=== PATIENT | male | born 1975 | race Caucasian/White ===

== ENCOUNTER 2016-10-10 18:52 | Emergency (ER) | payer OTHER ==
[~2016-10-10] VITALS: Ht 177.8 cm; Wt 102.0 kg
[2016-10-10 18:56] VITALS: BP 139/85; PULSE 99; RESP 16; O2SAT 97
--- NOTE | 2016-10-10 19:23 | ED.REPORT ---
HPI-Extremity Problem Lower Date of Service Oct 10, 2016 ED Provider: Shamir Siu MD The patient is a 41 year old male who presents to the ED c/o of stabbing right knee pain for the past few days. Patient has [place] revealing a hx of narcotic seeking behavior. Pt states that he sustained a femur injury in 2004 and aggravated the injury when moving some boxes to the 4th floor of his apt building a few days ago. He has been taking ibuprofen and Tylenol for pain which has not been effective at reducing his symptoms. Pt has been told he will eventually need a knee replacement. Significant hx includes right femur surgery. Nursing Notes Stated Complaint: SWOLLEN, PAINFUL ROGHT KNEE Chief Complaint: Extremity Trauma Nursing Notes Reviewed: Yes Allergies: Coded Allergies: Penicillins (Verified Allergy, Intermediate, hives, 10/10/16) General Time Seen by MD: 19:00 Chief Complaint Knee injury right Hx Obtained From: Patient Arrived By: Walk-in Onset Occurred: 3 days ago Symptom Duration: Since onset Location: : Knee right Quality: Painful Severity: Current: Moderate Exacerbated by: Range of motion, Movement Similar Sx Previous: Yes Past Medical History Past Medical History healthy Past Surgical History right femur surgery right knee surgery Smoking History Unknown if Ever Smoker Social History Other Social History: Local resident Ambulatory Status Independent Review of Systems Constitutional: Denies: Chills, Fever Musculoskeletal: Reports: Extremity pain (right knee pain), Joint pain (right knee pain) Skin: Denies Diaphoresis Neurologic: Denies: Change LOC, Lightheaded, Weakness Complete sys rev & neg: except as marked. Physical Exam Initial Vital Signs Vital Signs (First) Date Time Temp Pulse Resp B/P Pulse Ox O2 Delivery O2 Flow Rate FiO2 10/10/16 18:56 37.1 99 16 139/85 97 Room Air Initial VS: Reviewed Right Knee: Negative: Deformity present, Ecchymosis present, Erythema present, Joint effusion present well healed surgical scar over right knee Ankle / Foot: Atraumatic, Inspection NL General/Constitutional: Awake, Alert, No acute distress, Cooperative, Not toxic appearing Respiratory / Chest: Atraumatic, Breath sounds NL, Breath sounds = bilat, No respiratory distress Cardiovascular: Heart rate NL, Regular rhythm, Heart sounds NL Skin: Atraumatic, Color NL, Warm, Dry Neurologic: Oriented X3, Speech NL, No motor deficits Head / Eyes: Atraumatic, Normocephalic, PERRL, EOMI ENT: Atraumatic, Airway patent, Mucous membranes moist Abdomen: Atraumatic, Soft, Non-tender Re-Eval/Medical Decision Med Decision/Clinical Course The patient is a 41 year old male who presents to the ED c/o of stabbing right knee pain for the past few days. Patient has [place] revealing a hx of narcotic seeking behavior. Pt states that he sustained a femur injury in 2004 and aggravated the injury when moving some boxes to the 4th floor of his apt building a few days ago. He has been taking ibuprofen and Tylenol for pain which has not been effective at reducing his symptoms. Pt has been told he will eventually need a knee replacement. Here in the emergency department the patient is afebrile w/ stable vital signs and examination as above. RIGHT KNEE X-RAY IMPRESSION: Diffuse osteoarthritic change considered moderate. Patient was given Toradol for pain with moderate improvement in his symptoms. At this time, there is no evidence of fracture, dislocation, septic arthritis, joint effusion or overlying infection. His pain is most likely related to degenerative disease related to his previous injury. At this time, I see no evidence of significant acute injury. He will follow up with his regular doctor and orthopedic surgeon to further discuss any ongoing management. At this time, I feel he is appropriate for discharge. We discussed nonnarcotic modalities for pain management. Prior to discharge follow-up and return precautions were reviewed in detail with the patient who verbalized understanding and agreement with the plan. The patient was discharged in stable condition. Re-Evaluation/Progress : Time of Eval: 19:27 Re-Evaluation/Progress Note: Plan for 30 mg IM torridol. Counseled Regarding: Diagnosis, Lab results, Need for follow-up, When/why to return to ED Discharge & Departure Impression: Primary Impression: Osteoarthritis Osteoarthritis location: knee Osteoarthritis type: post-traumatic Laterality: right Qualified Code: M17.31 - Unilateral post-traumatic osteoarthritis, right knee Additional Impressions: Right knee pain Chronicity: chronic Qualified Code: M25.561 - Pain in right knee History of knee surgery History of femur fracture Opiate dependence Substance use status: with unspecified opioid-induced disorder Qualified Code : F11.29 - Opioid dependence with unspecified opioid-induced disorder Disposition: Home Discharge Condition All VS Reviewed: Yes Condition: Stable Additional Instructions: Use tylenol, ibuprofen and Ice packs. I recommend 600 mg Ibuprofen 3 times a day for 7 days. This will help with pain and antinflammatory effects. With this amount of damage to your knee, you will probably get to the point where you should consider a knee replacement. Follow up with your primary care physician and I have attached a referral to orthopedics. Return to the Emergency Department if you experience any new or worsening symptoms. Thank you for entrusting us with your care today. Referrals: [facility] (PCP) [facility] Scribe Attestation Portion of this note were transcribed by Krupa Clark. I, Dr. Siu, personally performed the history, physical exam, and medical decision-making: I reviewed and confirmed the accuracy for the information in the transcribed note. Signed by: pushpa Catalan, 10/10/16 2300 copies to: [facility] Shamir Siu MD Oct 10, 2016 19:23 Krupa Clark Oct 10, 2016 19:28
--- NOTE | 2016-10-10 20:17 | DRSVH ---
PROCEDURE: X-RAY RIGHT KNEE, THREE VIEWS ([id number]) INDICATIONS: knee pain, prev surg TECHNIQUE: 3 views of the knee were acquired. COMPARISON: None. FINDINGS: Bones: No fractures or dislocations. There is spurring of the intracondylar eminence. There medial and lateral marginal osteophytes of small to moderate size. There are marginal osteophytes around the patellofemoral joint. There is an intramedullary cathy that ends 1.5 cm above the intracondylar notch. Soft tissues: No joint effusion. No suspicious soft tissue calcifications. IMPRESSION: Diffuse osteoarthritic change considered moderate. Dictated by: Ashwin Iglesias M.D. on 10/10/2016 at 20:14 Approved by: Ashwin Iglesias M.D. on 10/10/2016 at 20:15
[2016-10-10 20:34] VITALS: BP 141/87; PULSE 85; RESP 16; O2SAT 99
== END 2016-10-10 20:42 | disposition home or self-care (01) ==
LOC: SED 18:52
DX: M17.31 Unilateral post-traumatic osteoarthritis, right knee (principal); F11.29 Opioid dependence with unspecified opioid-induced disorder; Z87.81 Personal history of (healed) traumatic fracture; Z98.890 Other specified postprocedural states
CPT/HCPCS: 73562; 96372; 99284; J1885

== ENCOUNTER 2016-11-18 20:51 | Emergency (ER) | payer OTHER ==
[~2016-11-18] VITALS: Ht 177.8 cm; Wt 100.0 kg
[2016-11-18 20:57] VITALS: BP 163/81; PULSE 80; RESP 18; O2SAT 99
--- NOTE | 2016-11-18 21:35 | DRSVH ---
PROCEDURE: X-RAY RIGHT HAND, MINIMUM THREE VIEWS ([id number]) INDICATIONS: 41 year-old male with right hand injury yesterday. TECHNIQUE: 3 views of the hand(s) acquired. COMPARISON: None. FINDINGS: Bones: There is mildly displaced oblique fracture involving the fifth metacarpal base. Other bones ap pear intact. No suspicious bony lesions. Soft tissues: No suspicious soft tissue calcifications. IMPRESSION: Mildly displaced oblique fracture of the fifth metacarpal base. Dictated by: Daniel Mcelroy M.D. on 11/18/2016 at 21:32 Approved by: Daniel Mcelroy M.D. on 11/18/2016 at 21:33
--- NOTE | 2016-11-18 21:45 | ED.REPORT ---
HPI-Extremity Problem Upper Date of Service Nov 18, 2016 ED Provider: Doc,Ed MD Nursing Notes Stated Complaint: POSS BROKEN RIGHT HAND Chief Complaint: Extremity Trauma Allergies: Coded Allergies: Penicillins (Verified Allergy, Intermediate, hives, 11/18/16) General Time Seen by MD: 21:44 Past Medical History Past Medical History healthy Past Surgical History right femur surgery right knee surgery Smoking History Unknown if Ever Smoker Social History Other Social History: Local resident Ambulatory Status Independent Physical Exam Initial Vital Signs Vital Signs (First) Date Time Temp Pulse Resp B/P Pulse Ox O2 Delivery O2 Flow Rate FiO2 11/18/16 20:57 36.0 80 18 163/81 99 Room Air Discharge & Departure Referrals: [facility] (PCP) Kanu Garcia MD Nov 18, 2016 21:45
--- NOTE | 2016-11-18 21:45 | ED.REPORT ---
HPI-Extremity Problem Upper Date of Service Nov 18, 2016 ED Provider: Dr. Lozano Pt is a 41 year old male presenting to the ED complaining of right hand pain onset twenty-four hours prior to arrival when he punched a steel door. He denies any other injury, numbness, weakness, wheezing, vomiting, or fever. Denies any hx of drug or alcohol abuse. Nursing Notes Stated Complaint: POSS BROKEN RIGHT HAND Chief Complaint: Extremity Trauma Nursing Notes Reviewed: Yes Allergies: Coded Allergies: Penicillins (Verified Allergy, Intermediate, hives, 11/18/16) Scheduled PRN Ibuprofen (Ibuprofen) 600 Mg Tablet 600 MG PO QID PRN PRN For Pain General Time Seen by MD: 21:44 Chief Complaint Hand injury right Hx Obtained From: Patient Arrived By: Walk-in Onset Occurred: Just prior to arrival Symptom Duration: Since onset Caused by: Fist injury Location: : Hand right Quality: Painful Severity: Current: Moderate Severity: Maximum: Severe Recent Healthcare: No recent doctor visit, No recent hospitalization Similar Sx Previous: No Past Medical History Past Medical History healthy Past Surgical History right femur surgery right knee surgery Smoking History Unknown if Ever Smoker Social History Other Social History: Local resident Ambulatory Status Independent Review of Systems Constitutional: Denies: Fever, Weakness - generalized Musculoskeletal: Reports: Extremity pain Neurologic: Denies: Numbness Complete sys rev & neg: except as marked. Respiratory: Denies: Wheezing Physical Exam Initial Vital Signs Vital Signs (First) Date Time Temp Pulse Resp B/P Pulse Ox O2 Delivery O2 Flow Rate FiO2 11/18/16 20:57 36.0 80 18 163/81 99 Room Air Initial VS: Reviewed General/Constitutional: Well-developed, Well-nourished Head / Eyes: Atraumatic, Normocephalic, PERRL ENT: Mucous membranes moist, Conjunctiva normal, No scleral icterus Neck: Supple, Non-tender, Full range of motion Respiratory: Breath sounds normal, Clear to auscultation, No respiratory distress Cardiovascular: Regular rate & rhythm, Heart sounds normal, Intact distal pulses Abdomen / GI: Soft, Non-tender, No guarding, No rebound, No distention Lower Extremities: Vascular intact, Neuro intact, No swelling, No tenderness Skin: Warm, Dry, No cyanosis Neurologic: Alert, Oriented, Nonfocal Psychiatric: Mood/affect normal, Behavior normal, Normal thought content Wrist / Hand: No erythema, No deformity, Neurologic intact, Vascular intact Right Hand: Positive: Tenderness present... Interpretation & Diagnostics X-Ray Interpretation Xray Interpretation: IMPRESSION: Mildly displaced oblique fracture of the fifth metacarpal base. Dictated by: Daniel Mcelroy M.D. on 11/18/2016 at 21:32 X-Ray Ordered: Hand right Interpretation / Wet Read by: Interpret - Radiologist Re-Eval/Medical Decision Med Decision/Clinical Course 41-year-old presents with a self-induced fracture after punching a steel door. He is fracture the base of his fifth metacarpal with moderate angulation and some comminution. Placed in an ulnar gutter splint. I asked him directly if he had any issues with narcotics in the past and he denied this. ED i.e. report subsequently shows a care plan excluding narcotics except for acute trauma And demonstrable sources of pain. I confronted him with this information and he acknowledged minimizing his difficulties, but he does have an acute bony injury, and was provided with ten Vicodin only without any renewal. Follow-up with Dr. Hatfield in the office. Re-Evaluation/Progress #1: Time of Eval: 21:49 Patient Status: Condition improved Re-Evaluation/Progress Note: Discussed plan for discharge. Pt understands and agrees with plan. Re-Evaluation/Progress #2: Time of Eval: 22:27 Patient Status: Condition improved Re-Evaluation/Progress Note: Discussed the pt's LOGAN report. Counseled Regarding: Diagnosis, Lab results, Need for follow-up, When/why to return to ED Discharge & Departure Impression: Primary Impression: Fracture of metacarpal base of right hand, closed Encounter type: initial encounter Qualified Code: S62.319A - Displaced fracture of base of unspecified metacarpal bone, initial encounter for closed fracture Disposition: Home Discharge Condition All VS Reviewed: Yes Condition: Improved Patient Instructions: Hand Fracture (ED), Splint Care (ED) Additional Instructions: Wear the splint full-time for four weeks. You may remove to wash and then re- apply the splint. Elevate whenever possible above the level of the heart to reduce swelling. Ice frequently over the first twenty-four hours. Call the orthopedic office tomorrow morning for follow-up. Ibuprofen first then Vicodin if needed for pain Follow up with your doctor in the office. Return if any immediate issues. Referrals: Nader Hatfield Attestation Portions of this note were transcribed by Alvina Evans. I, Dr. Lozano personally performed the history, physical exam and medical decision-making; I reviewed and confirmed the accuracy of the information in the transcribed note. Signed by: Keysha Reynolds, 11/18/2016 at 2212. copies to: Nader Hatfield Christopher W MD Nov 18, 2016 21:45 ALVINA EVANS Nov 18, 2016 21:50
[2016-11-18] MEDS ORDERED: _HYDROcodone/APAP 5-325 mg Tablet PO PRN (21:50)
[2016-11-18] MEDS ORDERED: IBUP-1827 PO (21:54)
[2016-11-18 22:59] VITALS: BP 163/81; PULSE 80; RESP 18; O2SAT 99
== END 2016-11-18 23:00 | disposition home or self-care (01) ==
LOC: SED 20:51
DX: S62.316A Displaced fracture of base of fifth metacarpal bone, right hand, initial encounter for closed fracture (principal); W22.8XXA Striking against or struck by other objects, initial encounter; Y93.89 Activity, other specified; Y92.9 Unspecified place or not applicable; Y99.8 Other external cause status; Z88.0 Allergy status to penicillin